=== PATIENT | female | born 1995 | race Caucasian/White ===

== ENCOUNTER 2018-12-09 09:06 | Day surgery (SDC) | payer MEDICAID, OTHER ==
[2018-12-08 13:18] VITALS: BMI 38.4
[2018-12-09] VITALS (26 sets, daily range): BP systolic 13–140; BP diastolic 67–91; PULSE 98–111; RESP 16–25; Ht 162.6 cm; Wt 101.8 kg
[~2018-12-09] VITALS: Ht 162.6 cm; Wt 101.8 kg
[~2018-12-09 09:06] MED LIST: KETO60VI24 IM; SEVOFLURANE 15 MIN ONE
[2018-12-09] MEDS ORDERED: CEFU250T64 PO (09:37)
[2018-12-09] MEDS ORDERED: TRAM50TA PO (09:37)
[2018-12-09] MEDS ORDERED: HYDR-4011 PO (09:38)
[2018-12-09] MEDS ORDERED: CRAN425C6 PO (09:38)
[2018-12-09] MEDS ORDERED: CIPROFLOXACIN 400 MG in D5W 200 ML IVPB ONE (10:00)
[2018-12-09] MEDS ORDERED: IOHEXOL 300MG/ML 30 ML BTL ONE (10:05)
--- NOTE | 2018-12-09 11:03 | PREAC ---
Date/Time of Note Date/Time of Note DATE: 12/09/18 TIME: 11:00 Anesthesia Eval and Record Evaluation Time Pre-Procedure Interview DATE: 12/09/18 TIME: 11:00 Age 23 Sex female NPO: 8 hrs Preoperative diagnosis left ureteral stone Planned procedure cystoscopy, removal left ureteral stent, left retrograde pyelograms, left ureteroscopy with laser lithotripsy, basketing of stone fragment insertion of left ureteral stent Past Medical History Past Medical History: Includes GI: Obesity Surgery & Anesthesia Issues No known issue Meds Anticoagulation: No Beta Jacklyn within 24 hr: No Reason Beta Jacklyn not given: Pt. not on B-Jacklyn Reported Medications Cranberry Extract (Cranberry) 425 Mg Capsule, 425 MG PO DAILY, CAP 12/09/18 Hydrocodone/Acetaminophen (Norris 5-325 Tablet) 1 Each Tablet, 1-2 EACH PO Q6 PRN for PAIN, TAB 12/09/18 Tramadol Hcl* (Ultram*) 50 Mg Tablet, 50 MG PO Q6H PRN for PAIN, TAB 12/09/18 Cefuroxime Axetil* (Cefuroxime Axetil*) 250 Mg Tablet, 250 MG PO BID, TAB STARTED 11-26-18 FOR 14 DAYS 12/09/18 Discontinued Reported Medications Ketorolac Tromethamine* (Toradol*) 60 Mg/2 Ml Soln, 60 MG IM, VIAL 12/08/18 Meds reviewed: Yes Allergies Coded Allergies: No Known Allergies (Verified Allergy, Unknown, 12/09/18) Uncoded Allergies: CANTALOUPE (Allergy, Intermediate, TONGUE TINGLES PER PT, 05/29/13) Allergies Reviewed: Yes Labs/Studies Labs Reviewed: Reviewed by anesthesiologist test: Negative Pre-procedure Exam Last vitals Vital Signs Date Temp Pulse Resp B/P (MAP) Pulse Ox O2 O2 Flow FiO2 Time Delivery Rate 12/09/18 98.1 111 16 136/91 97 Room Air 09:51 (106) Airway: Adequate mouth opening, Adequate thyromental dist Mallampati: Mallampati II Teeth: Normal Lung: Normal Heart: Normal ASA Physical Status ASA physical status: 2 Emergency: None Planned Anesthetic General/MAC: LMA Planned Pain Management Parenteral pain med Pre-operative Attestations Prior to commencing anesthesia and surgery, the patient was re-evaluated, there was verification of: *The patient's identity *The results of appropriate recent lab work and preoperative vital signs *The above evaluation not changing prior to induction *Anesthetic plan, risk benefits, alternative and complications discussed with patient/family; questions answered; patient/family understands, accepts and wishes to proceed. EDMAR QUINN MD Dec 09, 2018 11:03
--- NOTE | 2018-12-09 11:25 | HPN ---
Date/Time of Note Date/Time of Note DATE: 12/09/18 TIME: 11:25 Interval H&P Admission Note Pt. seen H&P reviewed: No system changes TY MORROW Dec 09, 2018 11:25
[2018-12-09] MEDS ORDERED: MIDAZOLAM 1 MG/ML 2 ML INJ ONE ×2 (11:28)
[2018-12-09] MEDS ORDERED: LABETALOL HCL 20MG INJ IV PRN (11:30)
[2018-12-09] MEDS ORDERED: hydrALAzine 20 MG INJ IV PRN (11:30)
[2018-12-09] MEDS ORDERED: HYDROmorphONE 1 MG/5 ML IV SYRINGE IV PRN ×3 (11:30)
[2018-12-09] MEDS ORDERED: DIPHENHYDRAMINE 50 MG INJ IV PRN (11:30)
[2018-12-09] MEDS ORDERED: MEPERIDINE 25 MG INJ IV PRN (11:30)
[2018-12-09] MEDS ORDERED: ONDANSETRON 4 MG INJ IV PRN (11:30)
[2018-12-09] MEDS ORDERED: OXYCODONE/ACETAMINOPHEN (5/325) TAB PO PRN (11:30)
[2018-12-09] MEDS ORDERED: PROCHLORPERAZINE 10 MG INJ IV PRN (11:30)
[2018-12-09] MEDS ORDERED: FENTAnyl 50 MCG/ML VIAL IV PRN (11:30)
[2018-12-09] MEDS ORDERED: DEXAMETHASONE 4 MG/ML 5 ML INJ ONE (11:35)
[2018-12-09] MEDS ORDERED: FAMOTIDINE 20 MG INJ ONE (11:35)
[2018-12-09] MEDS ORDERED: PROPOFOL 40 ML ONE (11:35)
[2018-12-09] MEDS ORDERED: ONDANSETRON 4 MG INJ ONE (11:35)
[2018-12-09] MEDS ORDERED: LIDOCAINE 2% (SDV) 5 ML INJ ONE (11:35)
[2018-12-09] MEDS ORDERED: CIPROFLOXACIN 400MG/D5W 200 ML ONE (11:45)
[2018-12-09] MEDS ORDERED: HYDROmorphONE 2 MG/ML SYG ONE (12:01)
--- NOTE | 2018-12-09 12:27 | PDOCDIS ---
Discharge Instructions DIAGNOSIS Discharge Diagnosis Ureteral stone and stricture CONDITION Lc Patient Condition: [id number] Good HOME CARE INSTRUCTIONS: Lc Diet Instructions: Axel Regular ACTIVITY: Lc Activity Restrictions: Axel Slowly Increase Activity Lc Bathing Restrictions: [id number] Shower FOLLOW UP/APPOINTMENTS Follow-up Plan Follow up in office in 2 weeks for cysto - removal of stent REFERRALS Lc Referring Provider: TY Taylor Other Referrals None OTHER ORDERS: Other Orders: DC to home when awake and stable SCHOOL/WORK RELEASE May return to School/Work on: Dec 25, 2018 TY MORROW Dec 09, 2018 12:27
--- NOTE | 2018-12-09 12:41 | PAC ---
Date/Time of Note Date/Time of Note DATE: 12/09/18 TIME: 12:40 Post-Anesthesia Notes Post-Anesthesia Note Last documented vital signs Vital Signs Date Temp Pulse Resp B/P (MAP) Pulse Ox O2 O2 Flow FiO2 Time Delivery Rate 12/09/18 108 20 118/72 95 Mask 10.0 12:23 (87) 12/09/18 98.0 12:18 Activity: WNL Respiratory function: WNL Cardiovascular function: WNL Mental status: Baseline Pain reasonably controlled: Yes Hydration appropriate: Yes Nausea/Vomiting absent: Yes Comments BP: 120/74 HR: 99 RR: 15 T: 98 SaO2: 97% EDMAR QUINN MD Dec 09, 2018 12:41
--- NOTE | 2018-12-09 13:00 | OPR ---
DATE OF OPERATION: PREOPERATIVE DIAGNOSIS: Ureteral stone. POSTOPERATIVE DIAGNOSIS: Impacted 6 mm proximal left ureteral calculi associated with ureteral stric ture. OPERATIONS PERFORMED: Removal of left ureteral stent, left retrograde pyelogram, left ureteroscopy w ith endoscopic holmium laser lithotripsy, dilation of ureteral stricture and insertion of left ureter al stent. SURGEON: Ty Schofield MD ANESTHESIA: General. COMPLICATIONS: None. FINDINGS: False passage of proximal left ureter and impacted stone associated with a ureteral strict ure. DESCRIPTION OF PROCEDURE: The patient was brought to the operating room and placed on the operating room table in the supine lithotomy position. She was prepped and draped in the usual fashion after a nesthesia was induced. A timeout was undertaken. Appropriate pressure points were padded. She rece ived preoperative antibiotic therapy and sequential compression devices were applied. The patient wa s noted to have a string protruding out of her urethra and taped onto the lower abdomen with the Tega derm. Attention was placed onto the string which easily allowed for the ureteral stent to be brought up to the level of the urethral meatus. An attempt to insert a wire into the stent was unable to be performed due to obstruction and thus the stent was removed intact. Rigid cystoscopy was then under taken with 12-degree and 30-degree angle lens edema. Around the left ureteral orifice was appreciate d. Bladder was inspected in a systematic fashion. No foreign body, bladder stone or tumor could be appreciated. A left retrograde pyelogram was undertaken which demonstrated a dilated ureter with com plete obstruction at the level of the ureteropelvic junction and extravasation in the proximal ureter . With gentle manipulation, a wire was placed up to the level of the stone, but I was unable to pass the wire proximal to the stone. Due to the above findings, ureteroscopy was undertaken without any noted difficulty. The semirigid long ureteroscope was easily inserted up into the proximal ureter wh ere an impacted stone was identified and it appears that is growing into the wall of the ureter. An adjacent to this region is a small opening which appears where the ureteral stent was. In light of t he above findings, this is concerning for a false passage. Under direct vision, endoscopic holmium l aser lithotripsy was undertaken with a 365 micron holmium fiber with a setting of 8 rand and 80 joul es. Excellent and easy fragmentation was undertaken. This allowed for an opening into the ureter wh ich is at the ureteropelvic junction. Through the small opening, I was able to see the renal pelvis and a wire was placed into this region. The secondary opening, which was just mentioned, does not ap pear to remain within the collecting system. With gentle manipulation and with a wire in the renal p nakia, a repeat retrograde pyelogram was undertaken. Extravasation from the secondary opening was ap preciated with the majority contrast instilling into a very dilated renal pelvis with dilated calyces . With gentle manipulation, the ureteroscope was placed into the renal pelvis. No further stone bur den could be appreciated. No filling defects were noted. The wire was positioned into the upper aust[place] e and the ureteroscope was removed overlying the wire. A 24 cm 6-Micronesian double-J ureteral stent was inserted with the proximal aspect coiling within the upper pole and the lower aspect coiling within t he bladder. Attached to the distal end was a tapered string. Proper position was confirmed with dir ect vision fluoroscopy and a KUB. She will follow up in the office in 2 weeks' time for cystoscopy, stent removal. Dictated By: TY NORWOOD/SCOTTY Conf#: [id number] DID#: [id number]
== END 2018-12-09 16:00 | disposition home or self-care (01) ==
LOC: SDS 09:06
PROVIDERS: ATTEND Urology
DX: N20.1 Calculus of ureter (principal)
CPT/HCPCS: 52356; 74430; 84703; 93005; C2617; J0744; J1100; J1170; J2175; J2250; J2405; J3010; Q9967; Z7512; Z7610